=== PATIENT | male | born 2000 | race Caucasian/White ===

== ENCOUNTER 2020-05-27 16:17 | Emergency (ER) | payer BC ==
[2020-05-27 16:35] VITALS: RESP 18
[2020-05-27] MEDS ORDERED: SODIUM CHLORIDE 0.9% 1,000 ML IV STA (17:08)
[2020-05-27] MEDS ORDERED: NITROGLYCERIN SL TABS 0.4 MG TAB SUBLINGUAL STA (17:09)
[2020-05-27] MEDS ORDERED: GLUCAGON 1 MG/ML VIAL IVP STA (17:09)
[2020-05-27] MEDS ORDERED: METOCLOPRAMIDE 5 MG/ML 2 ML VIAL IVP STA (17:09)
--- NOTE | 2020-05-27 17:14 | ED ---
General Adult HPI - General Chief complaint: ENT Stated complaint: Piece of steak stuck Time Seen by Provider: 05/27/20 17:02 Source: patient, family, RN notes reviewed Mode of arrival: ambulatory Limitations: no limitations - History of Present Illness Initial comments: Patient is a pleasant 20-year-old male presenting to the emergency Department with concerns of PE some steak stuck. Patient was eating steak around 2:30 and has been unable to swallow since that time. Even fluids come back up. Patient did have similar symptoms a few years ago and had medication that made him vomit to remove a piece of pork chop. Patient denies any chest pain or dyspnea. No other concerns. Patient denies chronic heartburn or GERD symptoms. - Related Data Home Medications Medication Instructions Recorded Confirmed No Known Home Medications 03/13/16 05/27/20 Allergies Allergy/AdvReac Type Severity Reaction Status Date / Time No Known Allergies Allergy Verified 05/27/20 19:36 Review of Systems ROS Statement: Those systems with pertinent positive or pertinent negative responses have been documented in the HPI. ROS Other: All systems not noted in ROS Statement are negative. Constitutional: Denies: fever Eyes: Denies: eye pain ENT: Denies: ear pain Respiratory: Denies: cough, dyspnea Cardiovascular: Denies: chest pain Endocrine: Denies: fatigue Gastrointestinal: Reports: as per HPI Genitourinary: Denies: dysuria Musculoskeletal: Denies: back pain Skin: Denies: rash Neurological: Denies: weakness Past Medical History Past Medical History: No Reported History History of Any Multi-Drug Resistant Organisms: None Reported Past Surgical History: No Surgical Hx Reported Additional Past Surgical History / Comment(s): blocked tear duct. Past Psychological History: No Psychological Hx Reported Smoking Status: Never smoker Past Alcohol Use History: None Reported Past Drug Use History: None Reported General Exam Limitations: no limitations General appearance: alert, in no apparent distress Head exam: Present: normocephalic Eye exam: Present: normal appearance Neck exam: Present: normal inspection Respiratory exam: Present: normal lung sounds bilaterally. Absent: respiratory distress, wheezes Cardiovascular Exam: Present: regular rate, normal rhythm GI/Abdominal exam: Present: soft. Absent: tenderness Extremities exam: Present: normal inspection Neurological exam: Present: alert Psychiatric exam: Present: normal affect, normal mood Skin exam: Present: normal color Course Vital Signs 05/27/20 16:30 Temperature 98.7 F Pulse Rate 95 Respiratory 18 Rate Blood Pressure 135/72 O2 Sat by Pulse 100 Oximetry - Reevaluation(s) Reevaluation #1: 05/27/20 18:32 No improvement with medications. Case discussed with Dr. Davis who will come and for endoscopy. Patient and family updated. Medical Decision Making - Medical Decision Making Patient did have endoscopy with removal of obstructive foreign body. Patient reevaluated and alert and appropriate. Patient isn't much better. Patient and mother updated Disposition Clinical Impression: Esophageal obstruction Disposition: HOME SELF-CARE Condition: Stable Instructions (If sedation given, give patient instructions): Esophageal Foreign Body (ED) Additional Instructions: Clear liquid diet for 24 hours, then soft diet for 24 hours. Please follow-up with Dr. Davis, number provided. Return for increased pain, difficulty breathing, not tolerating oral intake, worsening symptoms or other concerns. Prilosec OTC as directed by Dr. Davis Is patient prescribed a controlled substance at d/c from ED?: No Referrals: Galina Poe MD [STAFF PHYSICIAN] - 1-2 days Esequiel Powers MD [STAFF PHYSICIAN] - 1-2 days Time of Disposition: 20:23
[2020-05-27] MEDS ORDERED: PROPOFOL 10 MG/ML 20 ML VIAL IV ONE (19:39)
[2020-05-27] MEDS ORDERED: LIDOCAINE 1% INJ 10MG/ML (20 ML MDV) ONE (19:39)
--- NOTE | 2020-05-27 19:46 | CONS ---
CONSULTATION DATE OF DICTATION: May 27, 2020. REQUESTING PHYSICIAN: Dr. Huang. REASON FOR CONSULTATION: Acute food impaction. HISTORY OF PRESENT ILLNESS: The patient is a 20-year-old pleasant white male came in the emergency room complaining of acute food impaction. He was eating a piece of steak around 2:30 this afternoon and could not swallow any further. He had a similar episode that happened about 4 years ago that spontaneously resolved. Lately, he has been having intermittent dysphagia to solids, especially with bread and meat for the last 2 years, happens about once a month or so. He denies any heartburn. PAST MEDICAL HISTORY: None. PAST SURGICAL HISTORY: None. MEDICATIONS: At home none. ALLERGIES: No known drug allergies. SOCIAL HISTORY: No smoking. No alcohol use. FAMILY HISTORY: Unremarkable. REVIEW OF SYSTEMS: CARDIOPULMONARY: No chest pain or shortness of breath. GENITOURINARY: No dysuria or hematuria. MUSCULOSKELETAL unremarkable. SKIN unremarkable. ENDOCRINE unremarkable. PSYCHIATRIC: Unremarkable. NEUROLOGY: Unremarkable. HEENT: Vision unremarkable. CONSTITUTIONAL: No recent weight loss. No fever, chills, or night sweats. PHYSICAL EXAMINATION: He appears comfortable. No apparent distress. Vital signs are stable. Blood pressure 135/72, pulse rate 95, temperature 98.7. HEENT examination unremarkable. Conjunctivae pink. Sclerae anicteric. Oral cavity no lesions. NECK: No JVD or lymph node enlargement. CHEST was clear to auscultation. HEART: Regular rate and rhythm. ABDOMEN: Soft. Bowel sounds are positive. No organomegaly. EXTREMITIES: No pedal edema. NEUROLOGIC: Alert and oriented x3. No focal deficits. LABS: No lab done today. IMPRESSION: 1. Acute food impaction. 2. Intermittent dysphagia to solids. RECOMMENDATIONS: We will proceed with an upper endoscopy at the bedside in the emergency room. I discussed with the patient the risks, benefits and complications of procedure and he is agreeable to it. Further recommendations will follow based on the endoscopy results. Thank you for this consultation. MMODL / IJN: [id number] /
[2020-05-27] MEDS ORDERED: IV FLUID CONTINUATION 1,000 ML IV ONE (19:47)
--- NOTE | 2020-05-27 19:52 | P.PCN ---
Date of Procedure: 05/27/20 Procedure(s) Performed: BRIEF HISTORY: Patient is a 20-year-old, pleasant, white male came to the ER with acute food impaction. He has been having intermittent dysphagia to solids for the last few months duration usually with solids especially meat. Had an episode of severe food impaction in 2016 that spontaneously resolved. No history of GERD symptoms. He scheduled for an upper endoscopy for foreign body removal. PROCEDURE PERFORMED: Esophagogastroduodenoscopy with biopsy and foreign body removal. PREOPERATIVE DIAGNOSIS: Acute food impaction. IV sedation per anesthesia. PROCEDURE: After informed consent was obtained, the patient was brought into the endoscopy unit. IV sedation was administered by Anesthesia under continuous monitoring. Initially the Olympus GIF-140 video endoscope was inserted into the mouth. Esophagus intubated without any difficulty. It was gradually advanced into the distal esophagus and there was a large food bolus impacted in the distal esophagus. Generally the scope was able to push the food bolus into the stomach. The scope was then advanced into the distal stomach and duodenum and carefully examined. The bulb and the second part of the duodenum appeared normal. The scope at this time was withdrawn to the stomach, adequately insufflated with air, and upon careful examination, mucosa of the antrum, body, cardia and the fundus appeared normal. The scope was then withdrawn into the esophagus. The GE junction was located at 39 cm from the incisors. There were multiple distal esophageal mucosal rings along with longitudinal ridges and furrows SUSPICIOUS for eosinophilic esophagitis and hence multiple biopsies were done from the mid and distal esophagus. The rest of the esophagus appeared normal. There were no erosions or ulcerations seen and the patient tolerated the procedure well. IMPRESSION: 1. Distal esophageal food impaction status post removal as described above. 2. Multiple mucosal rings in the distal esophagus with longitudinal ridges and furrows suspicious for years of age esophagitis status post multiple biopsies. RECOMMENDATIONS: The findings of this examination were discussed with the patient as well as his family. He was advised to remain on a full liquid diet today. Start on Prilosec 20 mg twice daily. Await biopsy results. He'll be seen in office in 2-3 weeks..
[2020-05-27 20:30] VITALS: BP 131/79; PULSE 88; TEMP 98
== END 2020-05-27 20:35 | disposition home or self-care (01) ==
LOC: EC 16:17
DX: K22.2 Esophageal obstruction (principal)
CPT/HCPCS: 99283; 96374; 96375; 96361 ×2; J1610; J2765; 43239; 43247